=== PATIENT | male | born 1975 | race Caucasian/White ===

== ENCOUNTER → 2020-06-23 | Outpatient (CLI) | payer OTHER ==
--- NOTE | 2020-06-25 08:24 | ECHO ---
DATE OF PROCEDURE: 06/23/2020 Age: 44 Gender: Male Height: 67 inches Weight: 150 pounds Body surface area: 1.79 m2 PATIENT LOCATION: Outpatient. REFERRING PHYSICIAN: Liam Montoya DO INDICATION: Murmur. MEASUREMENTS: 2D Measurements: RV 3.5 cm LV 4.0 cm Septum 0.9 cm Posterior wall 0.9 cm Aortic Root 2.8 cm LA 3.1 cm LVEF 65% Doppler Measurements: AV 1.34 m/s LVOT 1.16 m/s LVOT diameter 1.9 cm MV-E 70, A 55, E/A ratio 1.3 Early mitral deceleration time 230 m/s E prime medial 13.8, A prime medial 10, E prime lateral 19.4 PV 0.8 m/s Pulmonary artery acceleration time 165 m/s PASP 10 mmHg IVC 1.7 cm COMMENTS: Sinus bradycardia with no intraventricular conduction disturbance. M-mode and two-dimensional echocardiography was performed with pulsed, continuous wave, color flow, and tissue Doppler studies. Normal left ventricular size, wall thickness, and wall motion. Normal left atrial size and Doppler assessment of left ventricular (LV) diastolic function and estimated mean left atrial pressure. Normal right heart chamber sizes, wall motion, and estimated pulmonary arterial pressure. Normal inferior vena cava (IVC) size and collapse against an elevated central venous pressure. Normal aortic dimensions. Normal appearing and functioning valvular structures. No apparent intracardiac mass or pericardial effusion. Unable to detect a structural or functional abnormality to account for the patients heart murmur likely physiologic/flow related. MTDD
== END ==
LOC: M CARPUL 10:19
PROVIDERS: ATTEND Family Medicine
DX: R01.1 Cardiac murmur, unspecified (principal)